=== PATIENT | male | born 1995 | race Caucasian/White ===

== ENCOUNTER 2020-07-23 14:52 | Emergency (ER) | payer OTHER ==
[~2020-07-23 14:52] MED LIST: BUSPAR 5MG TABLE5 MG PO; PROVENTIL HFA6.7 GM INH; PYRIDIUM200 MG PO; VIBRAMYCIN100 MG PO; ZOFRAN ODT 4 MG4 MG PO; ZYRTEC10 MG PO
[2020-07-23] MEDS ORDERED: CYCLOBENZAPRINE10 MG PO (17:24)
== END 2020-07-23 17:37 | disposition home or self-care (01) ==
LOC: ER1 14:52
DX: S39.012A Strain of muscle, fascia and tendon of lower back, initial encounter (principal); S29.012A Strain of muscle and tendon of back wall of thorax, initial encounter; X50.9XXA Other and unspecified overexertion or strenuous movements or postures, initial encounter
CPT/HCPCS: 72070; 72100; 96372; 99283; J1885

== ENCOUNTER 2021-04-28 18:20 | Emergency (ER) | payer OTHER ==
[~2021-04-28 18:20] MED LIST changes: +CYCLOBENZAPRINE10 MG PO
[2021-04-28 19:25] LABS: RED BLOOD COUNT 4.7 M/UL (4.20-5.50); WHITE BLOOD COUNT 5.3 K/UL (4.5-11.0)
[2021-04-28 19:41] LABS: BORDETELLA PARAPERTUSSIS Not Detected (Not Detectd); BORDETELLA PERTUSSIS Not Detected (Not Detectd); CHLAMYDIA PNEUMONIAE Not Detected (Not Detectd); CORONAVIRUS HKU1 Not Detected (Not Detectd); CORONAVIRUS NL63 Not Detected (Not Detectd); CORONAVIRUS OC43 Not Detected (Not Detectd); CORONOAVIRUS 229E Not Detected (Not Detectd); HUMAN METAPNEUMOVIRUS Not Detected (Not Detectd); HUMAN RHINOVIRUS/ENTEROVIRUS Not Detected (Not Detectd); INFLUENZA A Not Detected (Not Detectd); INFLUENZA B Not Detected (Not Detectd); MYCOPLASMA PNEUMONIAE Not Detected (Not Detectd); PARAINFLUENZA VIRUS 1 Not Detected (Not Detectd); PARAINFLUENZA VIRUS 2 Not Detected (Not Detectd); PARAINFLUENZA VIRUS 3 Not Detected (Not Detectd); PARAINFLUENZA VIRUS 4 Not Detected (Not Detectd); RESPIRATORY SYNCYTIAL VIRUS Not Detected (Not Detectd)
[2021-04-28 19:50] LABS: BUN/CREATININE RATIO 21 (0-10)
[2021-04-28 20:52] LABS: SARS-CoV-2 DETECTED (Not Detectd)
== END 2021-04-28 21:11 | disposition home or self-care (01) ==
LOC: ER1 18:20
PROVIDERS: Preventive Medicine Occupational Medicine
DX: U07.1 COVID-19 (principal); B97.0 Adenovirus as the cause of diseases classified elsewhere
CPT/HCPCS: 71045; 80053; 81001; 85025; 85652; 86140; 87086; 87633; 94664; 99285